=== PATIENT | female | born 1990 | race African-American/Black ===

== ENCOUNTER 2022-10-09 09:49 | Emergency (ER) | payer MEDICARE, OTHER ==
[~2022-10-09] VITALS: Ht 162.6 cm; Wt 49.0 kg
[2022-10-09] MEDS ORDERED: TOPUD PO (12:31)
[2022-10-09 18:32] VITALS: BP 98/56
== END 2022-10-09 18:34 | disposition home or self-care (01) ==
LOC: ER 09:49
DX: S00.83XA Contusion of other part of head, initial encounter (principal); G40.909 Epilepsy, unspecified, not intractable, without status epilepticus; G10 Huntington's disease; Z88.5 Allergy status to narcotic agent; W01.0XXA Fall on same level from slipping, tripping and stumbling without subsequent striking against object, initial encounter; Y93.89 Activity, other specified; Y92.128 Other place in nursing home as the place of occurrence of the external cause; Y99.8 Other external cause status
CPT/HCPCS: 99285

== ENCOUNTER 2024-08-17 10:59 | Emergency (ER) | payer MEDICARE, MEDICAID ==
[~2024-08-17] VITALS: Ht 160 cm; Wt 50.0 kg
[~2024-08-17 10:59] MED LIST: TOPUD PO
[2024-08-17 11:00] VITALS: O2SAT 98
[2024-08-17 12:02] LABS: CHLORIDE 109 mEq/L (98-107); POTASSIUM 3.5 mEq/L (3.5-5.1); SODIUM 146 mEq/L (136-145)
[2024-08-17 12:03] LABS: BASOPHILS % 0.3 % (0.0-2.0); CALCIUM 9.2 mg/dL (8.7-10.4); CARBON DIOXIDE 28 mEq/L (21-32); EOSINOPHILS % 2.3 % (0.0-5.0); HEMATOCRIT. 36.3 % (36.0-48.0); LYMPHOCYTES % 23.7 % (20.0-50.0); MEAN CORPUSCULAR HEMOGLOBIN 29.8 pg (28.0-32.0); MEAN CORPUSCULAR HGB CONC 32.9 g/dL (31.0-37.0); MEAN CORPUSCULAR VOLUME 90.6 fL (81.0-99.0); MEAN PLATELET VOLUME 8.4 fl (7.4-10.4); MONOCYTES % 5.8 % (2.0-8.0); NEUTROPHILS % 67.9 % (40.0-76.0); PLATELET 318 x1000/uL (130-400); RED BLOOD CELL COUNT 4.01 mill/uL (4.2-5.4); RED CELL DISTRIBUTION WIDTH 12.5 % (11.6-14.6); WHITE BLOOD COUNT 7.6 x1000/uL (4.5-11.0)
[2024-08-17 12:08] LABS: CREATININE 0.7 mg/dL (0.6-1.0); GLUCOSE 96 mg/dL (70-105); UREA NITROGEN BLOOD 18 mg/dL (9-23)
[2024-08-17 20:45] VITALS: BP 100/73; PULSE 65; RESP 14; TEMP 36.94740; O2SAT 100
== END 2024-08-17 20:50 | disposition home or self-care (01) ==
LOC: ER 10:59
DX: S09.90XA Unspecified injury of head, initial encounter (principal); G82.20 Paraplegia, unspecified; Z86.73 Personal history of transient ischemic attack (TIA), and cerebral infarction without residual deficits; W05.0XXA Fall from non-moving wheelchair, initial encounter; Y93.89 Activity, other specified; Y92.89 Other specified places as the place of occurrence of the external cause; Y99.8 Other external cause status
CPT/HCPCS: 36415; 80048; 85025; 99284

== ENCOUNTER 2025-01-15 22:37 | Emergency (ER) | payer MEDICARE, MEDICAID ==
[~2025-01-15] VITALS: Ht 162.6 cm; Wt 51.0 kg
[2025-01-15 22:39] VITALS: O2SAT 94
[2025-01-16 00:46] VITALS: BP 98/54; PULSE 60; RESP 12; TEMP 37; O2SAT 96
== END 2025-01-16 01:13 ==
LOC: ER 22:37
DX: S60.312A Abrasion of left thumb, initial encounter (principal); G10 Huntington's disease; M06.9 Rheumatoid arthritis, unspecified; M79.7 Fibromyalgia; I95.9 Hypotension, unspecified; Z86.73 Personal history of transient ischemic attack (TIA), and cerebral infarction without residual deficits; Z98.890 Other specified postprocedural states; Z88.8 Allergy status to other drugs, medicaments and biological substances
CPT/HCPCS: 99283